=== PATIENT | male | born 1980 | race American Indian/Alaskan Native ===

== ENCOUNTER 2018-05-26 04:02 | Emergency (ER) | payer SELFPAY ==
[2018-05-26] MEDS ORDERED: ASPIRIN PO ONE (04:32)
[2018-05-26 04:51] LABS: Basophils # (Auto) 0.1 K/mm3 (0.0-0.1); Eosinophils # (Auto) 0.2 K/mm3 (0.0-0.4); Eosinophils % (Auto) 3.1 % (0.0-4.3); Hematocrit 40.7 % (35.5-45.6); Hemoglobin 14.2 gm/dl (11.8-15.2); Lymphocytes # (Auto) 2.8 K/mm3 (1.2-5.4); Lymphocytes % (Auto) 40.8 % (13.4-35.0); Mean Corpuscular HGB Conc 35 % (32-34); Mean Corpuscular Hemoglobin 30 pg (28-32); Mean Corpuscular Volume 86 fl (84-94); Monocytes # (Auto) 0.6 K/mm3 (0.0-0.8); Monocytes % (Auto) 8.1 % (0.0-7.3); Platelet Count 229 K/mm3 (140-440); Red Blood Count 4.71 M/mm3 (3.65-5.03); Red Cell Distribution Width 13.3 % (13.2-15.2)
[2018-05-26 05:06] LABS: BUN/Creatinine Ratio 10; Blood Urea Nitrogen 10 mg/dL (9-20); Calcium 8.9 mg/dL (8.4-10.2); Hemolysis Index 7
[2018-05-26 07:53] VITALS: BP 127/87
== END 2018-05-26 09:30 | disposition left against medical advice (07) ==
LOC: ED 04:02
DX: R07.89 Other chest pain (principal); Z53.21 Procedure and treatment not carried out due to patient leaving prior to being seen by health care provider
CPT/HCPCS: 36415; 80048; 84484; 85025; 93005; 93010

== ENCOUNTER 2020-11-12 10:46 | Emergency (ER) | payer SELFPAY ==
--- NOTE | 2020-11-12 11:00 | Event Note ---
ED Screening Note Date of service: 11/12/20 Time: 10:59 ED Screening Note: 40-year-old male with history of tobacco use but no other significant past history presents to the ER today complaint of left lower quadrant abdominal pain. Patient states that it started mildly about a month ago but last night got worse. He reports associated constipation. He reports no bowel movement past couple days. He denies any other symptoms. He denies similar pain in the past. Physical exam showed tenderness to the left lower quadrant This initial assessment/diagnostic orders/clinical plan/treatment(s) is/are subject to change based on patients health status, clinical progression and re- assessment by fellow clinical providers in the ED. Further treatment and workup at subsequent clinical providers discretion. Patient/guardian urged not to elope from the ED as their condition may be serious if not clinically assessed and managed. Initial orders include: Abdominal pain order set
[2020-11-12 11:34] LABS: Basophils # (Auto) 0.1 K/mm3 (0.0-0.1); Basophils % (Auto) 0.6 % (0.0-1.8); Eosinophils # (Auto) 0.3 K/mm3 (0.0-0.4); Eosinophils % (Auto) 3.7 % (0.0-4.3); Hemoglobin 15.1 gm/dl (11.8-15.2); Lymphocytes # (Auto) 2.5 K/mm3 (1.2-5.4); Lymphocytes % (Auto) 29.3 % (13.4-35.0); Mean Corpuscular HGB Conc 34 % (32-34); Mean Corpuscular Volume 89 fl (84-94); Monocytes # (Auto) 0.5 K/mm3 (0.0-0.8); Monocytes % (Auto) 5.9 % (0.0-7.3); Platelet Count 247 K/mm3 (140-440); Red Blood Count 5.06 M/mm3 (3.65-5.03); Red Cell Distribution Width 13.1 % (13.2-15.2)
[2020-11-12] MEDS ORDERED: fentaNYL 100 MCG/2 ML INJ IV ONE (11:47)
[2020-11-12] MEDS ORDERED: ONDANSETRON 4 MG/2 ML INJ IV ONE (11:47)
[2020-11-12 11:56] LABS: Alanine Aminotransferase 26 units/L (7-56); Albumin 4.1 g/dL (3.9-5); BUN/Creatinine Ratio 9; Blood Urea Nitrogen 9 mg/dL (9-20); Hemolysis Index 5
--- NOTE | 2020-11-12 11:56 | Emergency Department Report ---
HPI - General Chief Complaint: Abdominal Pain Time Seen by Provider: 11/12/20 10:58 - HPI HPI: Room 42 The patient is a 40-year-old male present with a chief complaint of abdominal pain. The patient states over the past 1-2 months he has had a constant left lower quadrant abdominal pain. Patient describes the pain is sharp and dull in nature. Patient states the pain worsened over the past 2 to 3 days. Patient denies nausea vomiting or fever. Patient states he believes he has lost approximately 15 pounds over the past 2 to 3 months. Patient currently gives his pain a score of 10/10 ED Past Medical Hx - Past Medical History Previous Medical History?: No Additional medical history: Obesity - Surgical History Past Surgical History?: No Additional Surgical History: Left upper extremity laceration - Family History Family history: no significant - Social History Smoking Status: Current Every Day Smoker (1/4 pack/day) Substance Use Type: None (Denies illicit drug use) - Medications Home Medications: Home Medications Medication Instructions Recorded Confirmed Last Taken Type Famotidine [Pepcid] 20 mg PO BID #20 tablet 01/04/15 Unknown Rx Ondansetron [Zofran] 4 mg PO ONCE #14 tablet 01/04/15 Unknown Rx traMADoL [Ultram 50 MG tab] 50 mg PO Q6HR PRN #20 tablet 01/04/15 Unknown Rx Azithromycin [Zithromax Z-MARY] 250 mg PO DAILY #6 tablet 03/02/15 Unknown Rx HYDROcodone/APAP 10-325 [[place] 1 each PO Q6HR PRN #12 tablet 03/02/15 Unknown Rx 10/325] Promethazine Dm (Nf) [Phenergan Dm 5 ml PO Q6H PRN #120 ml 03/02/15 Unknown Rx 6.25/15 mg 5 ml] Famotidine [Pepcid] 20 mg PO BID #60 tablet 11/12/20 Unknown Rx HYDROcodone/APAP 5-325 [[place] 1 - 2 each PO Q6HR PRN #14 tablet 11/12/20 Unknown Rx 5/325] ED Review of Systems ROS: Stated complaint: LEFT SIDED ABD PAIN Other details as noted in HPI Constitutional: other (Weight loss). denies: fever Eyes: denies: eye pain ENT: denies: throat pain Respiratory: no symptoms reported Cardiovascular: denies: chest pain Endocrine: no symptoms reported Gastrointestinal: abdominal pain. denies: nausea, vomiting Genitourinary: denies: dysuria Musculoskeletal: denies: back pain Neurological: denies: headache Physical Exam - Physical Exam Vital Signs: Vital Signs 11/12/20 10:56 Temperature 98.4 F Pulse Rate 60 Respiratory 60 H Rate Blood Pressure 139/88 O2 Sat by Pulse 99 Oximetry Physical Exam: GENERAL: The patient is well-developed well-nourished male lying on stretcher not appearing to be in acute distress. [] HEENT: Normocephalic. Atraumatic. Extraocular motions are intact. Patient has moist mucous membranes. NECK: Supple. No meningitic signs are noted. There is no adenopathy noted. CHEST/LUNGS: Clear to auscultation. There is no respiratory distress noted. HEART/CARDIOVASCULAR: Regular. There is no tachycardia. There is no gallop rub or murmur. ABDOMEN: Abdomen is soft, with tenderness to palpation in the left lower and left upper quadrants. There is no rebound or guarding. The remainder of the abdomen is nontender. Patient has normal bowel sounds. There is no abdominal distention. SKIN: There is no rash. There is no edema. There is no diaphoresis. NEURO: The patient is awake, alert, and oriented. The patient is cooperative. The patient has normal speech MUSCULOSKELETAL: There is no evidence of acute injury. ED Course Vital Signs 11/12/20 10:56 Temperature 98.4 F Pulse Rate 60 Respiratory 60 H Rate Blood Pressure 139/88 O2 Sat by Pulse 99 Oximetry ED Medical Decision Making - Lab Data Result diagrams: 11/12/20 11:14 11/12/20 11:14 Laboratory Tests 11/12/20 11/12/20 11/12/20 11:05 11:14 11:14 WBC 8.4 RBC 5.06 H Hgb 15.1 Hct 45.0 MCV 89 MCH 30 MCHC 34 RDW 13.1 L Plt Count 247 Lymph % (Auto) 29.3 [place] % (Auto) 5.9 Eos % (Auto) 3.7 Baso % (Auto) 0.6 Lymph # (Auto) 2.5 [place] # (Auto) 0.5 Eos # (Auto) 0.3 Baso # (Auto) 0.1 Seg Neutrophils % 60.5 Seg Neutrophils # 5.1 Sodium 138 Potassium 4.1 Chloride 103.2 Carbon Dioxide 30 Anion Gap 9 BUN 9 Creatinine 1.0 Estimated GFR > 60 BUN/Creatinine Ratio 9 Glucose 95 Calcium 9.0 Total Bilirubin 0.80 Direct Bilirubin < 0.2 Indirect Bilirubin 0.6 AST 19 ALT 26 Alkaline Phosphatase 46 Total Protein 7.0 Albumin 4.1 Albumin/Globulin Ratio 1.4 Lipase 40 Urine Color Yellow Urine Turbidity Clear Urine pH 5.0 Ur Specific [place] 1.024 Urine Protein <15 mg/dl Urine Glucose (UA) Neg Urine Ketones Neg Urine Blood Sm Urine Nitrite Neg Urine Bilirubin Neg Urine Urobilinogen < 2.0 Ur Leukocyte Esterase Neg Urine WBC (Auto) 1.0 Urine RBC (Auto) 3.0 U Epithel Cells (Auto) 1.0 Urine Mucus 3+ - Radiology Data Radiology results: report reviewed (CT abdomen pelvis), image reviewed (CT abdomen pelvis) [facility] [address] [id number] Cat Scan Report Signed Patient: SERA AGUDELO MR#: [id number] : 1980 Acct:[id number] Age/Sex: 40 / M ADM Date: 11/12/20 Loc: ED Attending Dr: Ordering Physician: DIONICIO CADET MD Date of Service: 11/12/20 Procedure(s): CT abdomen pelvis w con Accession Number(s): [id number] cc: DIONICIO CADET MD CT ABDOMEN AND PELVIS WITH CONTRAST HISTORY: LLQ abd pain worsening over 2 months. COMPARISON: CT abdomen/pelvis from 01/04/2015 TECHNIQUE: CT images of the abdomen and pelvis were obtained following administration of intravenous contrast. All CT scans at this location are performed using CT dose reduction for ALARA by means of automated exposure control. CONTRAST: 100 ml of intravenous contrast administered. FINDINGS: Lungs/bones: Lung bases are clear. Mild degenerative changes are present in the lower lumbar spine and in the pelvis. No acute osseous abnormality. Abdomen/pelvis: There is a steatosis. The liver is otherwise unremarkable. The gallbladder, spleen, pancreas, adrenals, kidneys, and proximal GI tract appear unremarkable. Urinary bladder and prostate are normal with no pelvic free fluid. There is colonic diverticulosis with no acute inflammatory change identified. The appendix and terminal ileum appear normal. IMPRESSION: 1. No acute abnormality identified. Signer Name: Garcia Salmon MD Signed: 11/12/2020 1:12 PM Workstation Name: [email or web address] Transcribed By: [email or web address] Dictated By: Garcia Salmon MD Electronically Authenticated By: Garcia Salmon MD Signed Date/Time: 11/12/20 1312 DD/ 1302 TD/TT: - Differential Diagnosis Diverticulitis, colonic mass, gastritis, peptic ulcer disease Critical care attestation.: If time is entered above; I have spent that time in minutes in the direct care of this critically ill patient, excluding procedure time. ED Disposition Clinical Impression: Acute abdominal pain Disposition: - TO HOME OR SELFCARE Is pt being admited?: No Does the pt Need Aspirin: No Condition: Stable Instructions: Abdominal Pain, Adult, Pain Without a Known Cause Additional Instructions: Return to the emergency department should you develop worsening symptoms, inability to tolerate food or liquids, high fever or any other concerns Prescriptions: HYDROcodone/APAP 5-325 [[place] 5/325] 1 - 2 each PO Q6HR PRN #14 tablet PRN Reason: Pain Famotidine [Pepcid] 20 mg PO BID #60 tablet Referrals: ANDREAS RICO MD [Staff Physician] - 3-5 Days (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 Please follow-up with him for further evaluation) Time of Disposition: 13:36
[2020-11-12 11:57] LABS: Bilirubin,Urine NEG (Negative); Blood,Urine SM (Negative); Color,Urine Yellow (Yellow); Mucus,Urine 3+ /HPF; Protein,Urine <15 mg/dL mg/dL (Negative); Urobilinogen,Urine < 2.0 mg/dL (<2.0)
[2020-11-12 12:10] LABS: Bilirubin,Direct < 0.2 mg/dL (0-0.2)
--- NOTE | 2020-11-12 13:17 | Cat Scan Report ---
CT ABDOMEN AND PELVIS WITH CONTRAST HISTORY: LLQ abd pain worsening over 2 months. COMPARISON: CT abdomen/pelvis from 01/04/2015 TECHNIQUE: CT images of the abdomen and pelvis were obtained following administration of intravenous contrast. All CT scans at this location are performed using CT dose reduction for ALARA by means of automated exposure control. CONTRAST: 100 ml of intravenous contrast administered. FINDINGS: Lungs/bones: Lung bases are clear. Mild degenerative changes are present in the lower lumbar spine a nd in the pelvis. No acute osseous abnormality. Abdomen/pelvis: There is a steatosis. The liver is otherwise unremarkable. The gallbladder, spleen, pancreas, adrenals, kidneys, and proximal GI tract appear unremarkable. Urinary bladder and prostate are normal with no pelvic free fluid. There is colonic diverticulosis wi th no acute inflammatory change identified. The appendix and terminal ileum appear normal. IMPRESSION: 1. No acute abnormality identified. Signer Name: Garcia Salmon MD Signed: 11/12/2020 1:12 PM Workstation Name: [id number]
[2020-11-12 14:06] VITALS: BP 133/84
== END 2020-11-12 14:08 | disposition home or self-care (01) ==
LOC: ED 10:46
DX: R10.9 Unspecified abdominal pain (principal); F17.200 Nicotine dependence, unspecified, uncomplicated; E66.9 Obesity, unspecified; Z68.41 Body mass index [BMI] 40.0-44.9, adult; Z79.899 Other long term (current) drug therapy; Z98.890 Other specified postprocedural states
CPT/HCPCS: 36415; 74177; 80048; 80076; 81001; 83690; 85025; 96374; 96375; 99284; J2405; J3010; Q9967

== ENCOUNTER 2020-11-16 07:59 | Emergency (ER) | payer OTHER ==
[2020-11-16 08:10] VITALS: BP 135/88
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
--- NOTE | 2020-11-16 09:00 | XRay Report ---
LUMBAR SPINE 3 VIEWS INDICATION / CLINICAL INFORMATION: Low back pain. COMPARISON: 11/12/[address] FINDINGS: VERTEBRAE: No acute fracture. No significant malalignment. DISC SPACES / FACET JOINTS:No significant abnormality. PARASPINAL SOFT TISSUES:No significant abnormality. ADDITIONAL FINDINGS: None. Signer Name: Conrad Ordoñez MD Signed: 11/16/2020 8:56 AM Workstation Name: [id number]
--- NOTE | 2020-11-16 09:03 | XRay Report ---
LEFT KNEE 3 VIEW(S) INDICATION / CLINICAL INFORMATION: L knee pain` COMPARISON: None available. FINDINGS: BONES / JOINT(S): No acute fracture or subluxation. No significant arthritis. SOFT TISSUES: No significant abnormality. ADDITIONAL FINDINGS: None. Signer Name: Conrad Ordoñez MD Signed: 11/16/2020 8:59 AM Workstation Name: [id number]
== END 2020-11-16 09:15 | disposition home or self-care (01) ==
LOC: ED 07:59
DX: S39.012A Strain of muscle, fascia and tendon of lower back, initial encounter (principal); M25.562 Pain in left knee; F17.200 Nicotine dependence, unspecified, uncomplicated; Z79.899 Other long term (current) drug therapy; V49.49XA Driver injured in collision with other motor vehicles in traffic accident, initial encounter; Y93.89 Activity, other specified; Y92.488 Other paved roadways as the place of occurrence of the external cause; Y99.8 Other external cause status
CPT/HCPCS: 72100; 99283

== ENCOUNTER 2021-03-15 08:30 | Emergency (ER) | payer SELFPAY ==
--- NOTE | 2021-03-15 08:45 | Emergency Department Report ---
Stated Complaint: POSSIBLE UTI Time Seen by Provider: 03/15/21 08:40 - HPI History of Present Illness: 40-year-old -[place] male patient presents with complaints of burning urination for the past 3 days. Patient denies any penile discharge, testicular pain/swelling, genital lesions, abdominal pain, swollen hot painful joints, or fever/chills/sweats. He states he is suspicious for STI given recent unprotected sexual activity. No past medical history of diabetes or other immunocompromising diseases per patient. Patient's vitals are normal. He is well-appearing. Recommend follow-up with the health department for STI testing and further treatment. Patient is to be screened out. Discussed signs and symptoms in detail that should prompt immediate return to the emergency department with patient who verbalizes understanding MSE screening note: Focused history and physical exam performed. Due to findings the following was ordered: ED Medical Decision Making - Medical Decision Making 40-year-old -Maltese male patient presents with complaints of burning urination for the past 3 days. Patient denies any penile discharge, testicular pain/swelling, genital lesions, abdominal pain, swollen hot painful joints, or fever/chills/sweats. He states he is suspicious for STI given recent unprotected sexual activity. No past medical history of diabetes or other immunocompromising diseases per patient. Patient's vitals are normal. He is well-appearing. Recommend follow-up with the health department for STI testing and further treatment. Patient is to be screened out. Discussed signs and symptoms in detail that should prompt immediate return to the emergency department with patient who verbalizes understanding ED Disposition for MSE Clinical Impression: Dysuria Disposition: DC-01 TO HOME OR SELFCARE Is pt being admited?: No Condition: Stable Instructions: Dysuria ED Physical Exam - General Limitations: No Limitations General appearance: alert, in no apparent distress, obese - Head Head exam: Present: atraumatic, normocephalic - Eye Eye exam: Present: normal appearance - Respiratory Respiratory exam: Present: normal lung sounds bilaterally. Absent: respiratory distress - Cardiovascular Cardiovascular Exam: Present: regular rate, normal rhythm. Absent: systolic murmur, diastolic murmur, rubs, gallop - GI/Abdominal GI/Abdominal exam: Present: soft. Absent: tenderness - Extremities Exam Extremities exam: Absent: joint swelling - Neurological Exam Neurological exam: Present: alert, oriented X3 - Psychiatric Psychiatric exam: Present: normal affect, normal mood - Skin Skin exam: Present: warm, dry, intact, normal color. Absent: rash ED Review of Systems ROS: Stated complaint: POSSIBLE UTI Other details as noted in HPI Constitutional: denies: chills, diaphoresis, fever, malaise, weakness Respiratory: denies: cough, shortness of breath Gastrointestinal: denies: abdominal pain Genitourinary: dysuria. denies: urgency, frequency, hematuria, discharge, testicular pain, testicular mass Musculoskeletal: denies: joint swelling, arthralgia Skin: denies: change in color Hematological/Lymphatic: denies: swollen glands
== END 2021-03-15 08:40 | disposition home or self-care (01) ==
LOC: ED 08:30
DX: R30.0 Dysuria (principal)
CPT/HCPCS: 99281

== ENCOUNTER 2021-05-07 14:39 | Emergency (ER) | payer SELFPAY ==
[2021-05-07 16:17] VITALS: BP 164/105
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
== END 2021-05-07 16:20 | disposition home or self-care (01) ==
LOC: ED 14:39
DX: B34.9 Viral infection, unspecified (principal); R03.0 Elevated blood-pressure reading, without diagnosis of hypertension
CPT/HCPCS: 99281

== ENCOUNTER 2021-07-16 11:39 | Emergency (ER) | payer OTHER ==
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
[2021-07-16 14:16] VITALS: BP 142/92
== END 2021-07-16 14:15 | disposition home or self-care (01) ==
LOC: ED 11:39
DX: S16.1XXA Strain of muscle, fascia and tendon at neck level, initial encounter (principal); S39.012A Strain of muscle, fascia and tendon of lower back, initial encounter; S09.90XA Unspecified injury of head, initial encounter; V89.2XXA Person injured in unspecified motor-vehicle accident, traffic, initial encounter; Y93.89 Activity, other specified; Y92.89 Other specified places as the place of occurrence of the external cause; Y99.8 Other external cause status
CPT/HCPCS: 70450; 72040; 72100; 99283